=== PATIENT | male | born 1960 | race Caucasian/White ===

== ENCOUNTER 2020-01-21 11:20 | Emergency (ER) | payer BC ==
[2020-01-21] MEDS ORDERED: IBUPROFEN 600 MG TABLET (FP) PO ONE ×2 (11:25→11:47)
[2020-01-21 11:34] VITALS: BP 171/114; PULSE 78; TEMP 98.2; BMI 28.1
--- NOTE | 2020-01-21 12:03 | PDOC ---
History of Present Illness - General Chief Complaint: Injury Stated Complaint: LEFT SHOULDER PAIN Time Seen by Provider: 01/21/20 11:25 History Source: Patient Exam Limitations: No Limitations - History of Present Illness Initial Comments: 01/21/20 11:57 5-year-old male here today status post left shoulder injury. States he was hit in the shoulder with a branch since then he has been unable to lift his arm past 90 degrees denies any deformity no elbow or wrist pain no distal numbness or tingling skin overlying was intact did not take anything for his pain he had taken Tylenol yesterday after his injury with minimal relief Past History - Medical History Allergies/Adverse Reactions: Allergies Allergy/AdvReac Type Severity Reaction Status Date / Time No Known Allergies Allergy Verified 01/21/20 11:23 Home Medications: Ambulatory Orders Acetaminophen [Tylenol] 650 mg PO DAILY 01/21/20 COPD: No HTN: Yes - Psycho-Social/Smoking History Smoking History: Never smoked Have you smoked in the past 12 months: No Information on smoking cessation initiated: No - Substance Abuse Hx (Audit-C & DAST Scrn) How often the patient has a drink containing alcohol: Never Score: In Men: 4 or > Positive; In Women: 3 or > Positive: 0 Screen Result (Pos requires Nsg. Audit-10AR): Negative In the last yr the pt used illegal drug/Rx for NonMed reason: No Score: Yes response is considered Positive: 0 Screen Result (Positive result requires Nsg. DAST-10): Negative Review of Systems - Review of Systems Constitutional: No: Chills, Diaphoresis, Fever HEENTM: No: Eye Pain, Tearing Respiratory: No: Cough, Shortness of Breath Cardiac (ROS): No: Chest Pain ABD/GI: No: Nausea, Vomiting : No: Burning, Dysuria, Discharge Musculoskeletal: Yes: Joint Pain. No: Back Pain All Other Systems: Reviewed and Negative *Physical Exam - Vital Signs Last Vital Signs Temp Pulse Resp BP Pulse Ox 98.2 F 78 20 171/114 H 98 01/21/20 11:22 01/21/20 11:22 01/21/20 11:22 01/21/20 11:22 01/21/20 11:22 - Physical Exam 01/21/20 11:58 Awake alert no acute distress lungs are clear bilaterally heart is regular 30 murmurs rubs or gallops abdomen is soft and nontender head is atraumatic there is no midline cervical spinal tenderness there is mild left trapezial spasm shoulder has abduction to 90 degrees beyond that is limited secondary to pain there is no noted deformity overlying skin is intact elbow and wrist are nontender with full range of motion 2+ radial median ulnar pulses bilaterally ED Treatment Course - RADIOLOGY Radiology Studies Ordered: Category Date Time Status SHOULDER-LEFT [RAD] Stat Radiology 01/21/20 11:26 Taken - Medications Given in the ED: ED Medications Discontinued Medications Generic Name Dose Route Start Last Admin Trade Name Kassi PRN Reason Stop Dose Admin Ibuprofen 600 mg 01/21/20 11:25 01/21/20 11:48 Motrin - PO 01/21/20 11:26 600 mg ONCE ONE Administration Medical Decision Making - Medical Decision Making 01/21/20 12:04 5-year-old male status post left shoulder injury yesterday was hit with a branch now complaining of shoulder pain. Differential includes muscle spasm as he has significant spasm over the trapezius versus contusion versus tendon sprain or fracture. Plan x-ray of the left shoulder Shoulder is negative for any broken bones. Will treat with ibuprofen patient's pain is improved DC to home given follow-up instructions with orthopedist and Motrin 600 mg as needed every 6-8 hours for pain Discharge - Discharge Information Problems reviewed: Yes Clinical Impression/Diagnosis: Shoulder injury Disposition: HOME - Admission No - Follow up/Referral Referrals: Jone Mohan MD [Staff Physician] - - Patient Discharge Instructions Patient Printed Discharge Instructions: DI for Shoulder Pain, DI for Muscle Spasm Additional Instructions: you xray of your shoulder is negative for any broken bone. you should follow up with an orthopedist. see referral number for dr Mohan, call to schedule appointment to be seen at first available. for you pain you can take ibuprofen 600 mg every 8 hours as needed . return for any problems or concerns. - Post Discharge Activity
== END 2020-01-21 12:15 | disposition home or self-care (01) ==
LOC: FER 11:20
DX: M25.512 Pain in left shoulder (principal)
CPT/HCPCS: 73030-TC-LT-FY; 99283-25

== ENCOUNTER 2021-10-29 12:00 | Emergency (ER) | payer OTHER, BC ==
[2021-10-29] MEDS ORDERED: ACETAMINOPHEN 325 MG TABLET (FP) PO ONE (12:24)
[2021-10-29] MEDS ORDERED: ACETAMINOPHEN 325 MG TABLET (FP) ONE (12:26)
[2021-10-29 12:32] VITALS: TEMP 97.7; BMI 28.1
[2021-10-29 12:44] LABS: HEMATOCRIT 43.5 % (35.4-49); MCH 30.9 pg (25.7-33.7); MCHC 34.6 g/dl (32.0-35.9); MEAN CELL VOLUME 89.4 fl (80-96); MEAN PLT VOLUME 7.5 fl (7.5-11.1); PLATELET COUNT 206.9 10^3/uL (134-434); RBC 4.87 10^6/uL (4.00-5.60); RDW 14.7 % (11.9-15.9); WHITE BLOOD COUNT 7.4 10^3/uL (4.0-10.8)
[2021-10-29 12:51] LABS: ALBUMIN 4.2 g/dl (3.4-5.0); BILIRUBIN,TOTAL 0.7 mg/dl (0.2-1); CREATININE 1.1 mg/dl (0.55-1.3); TOT PROT 7.3 g/dl (6.4-8.2)
[2021-10-29] MEDS ORDERED: amLODIPine BESYLATE 5 MG TABLET (FP) PO ONE (13:59)
[2021-10-29 14:13] VITALS: PULSE 64
[2021-10-29] MEDS ORDERED: amLODIPine BESYLATE 5 MG TABLET (FP) ONE (14:18)
[2021-10-29 17:01] VITALS: BP 185/124
== END 2021-10-29 17:18 | disposition home or self-care (01) ==
LOC: FER 12:00
DX: R42 Dizziness and giddiness (principal)
CPT/HCPCS: 36415; 80053; 84484; 85025; 93005; 99284-25

== ENCOUNTER 2022-07-08 13:11 | Emergency (ER) | payer BC, OTHER ==
[2022-07-08 13:23] VITALS: RESP 16; TEMP 97.4; BMI 24.7
[2022-07-08 14:12] VITALS: BP 124/90; PULSE 64
== END 2022-07-08 14:29 | disposition home or self-care (01) ==
LOC: FER 13:11
DX: I10 Essential (primary) hypertension (principal)
CPT/HCPCS: 99283-25

== ENCOUNTER 2024-01-19 18:02 | Emergency (ER) | payer BC, OTHER ==
[2024-01-19 18:36] VITALS: BP 158/100; PULSE 73; RESP 18; TEMP 98.8; BMI 28.1
[2024-01-19 18:46] LABS: HEMATOCRIT 41.1 % (35.4-49); HEMOGLOBIN 13.6 G/dL (11.7-16.9); MCH 30.3 pg (25.7-33.7); MEAN CELL VOLUME 91.8 fl (80-96); MEAN PLT VOLUME 7.6 fl (7.5-11.1); PLATELET COUNT 197.4 10^3/uL (134-434); RBC 4.48 10^6/uL (4.00-5.60); RDW 15.1 % (11.9-15.9); WHITE BLOOD COUNT 6.6 10^3/uL (4.0-10.8)
[2024-01-19 18:56] LABS: ALBUMIN 4.1 g/dl (3.4-5.0); ALK PHOS 46 U/L (45-117); ANION GAP 8 mmol/L (4-13); BILIRUBIN,TOTAL 0.3 mg/dl (0.2-1); CALCIUM 8.6 mg/dl (8.5-10.1); CHLORIDE 105 mmol/L (98-107); CO2 25 mmol/L (21-32); GLUCOSE,RANDOM 99 mg/dl (74-106); POTASSIUM 3.8 mmol/L (3.5-5.1); SGOT/AST 20 U/L (15-37); SGPT/ALT 14 U/L (7-52); SODIUM 138 mmol/L (136-145); TOT PROT 6.6 g/dl (6.4-8.2)
== END 2024-01-19 21:32 | disposition home or self-care (01) ==
LOC: FER 18:02
DX: R07.9 Chest pain, unspecified (principal); R42 Dizziness and giddiness
CPT/HCPCS: 36415; 71045-TC-FY; 80053; 84484; 85027; 93005; 93010; 99285-25